=== PATIENT | female | born 1990 | race Caucasian/White ===

== ENCOUNTER 2017-02-23 21:02 | Emergency (ER) | payer OTHER ==
[2017-02-23] MEDS ORDERED: ALBUTEROL NEB 2.5 MG/3 ML VIAL.NEB NEB ONE (22:55)
[2017-02-23] MEDS ORDERED: ALBUTEROL/IPRATROPIUM 2.5/0.5 MG 3 ML/EACH DOSE ONE (22:55)
[2017-02-23] MEDS ORDERED: PREDNISONE 20 MG TABLET ONE (22:55)
[2017-02-23] MEDS ORDERED: IBUPROFEN 600 MG TABLET ONE (23:14)
--- NOTE | 2017-02-24 07:41 | RAD ---
CHEST - 2 VIEWS COMPARISON: Portable chest x-ray, 09/25/2013 HISTORY: Cough and fever. FINDINGS: Views: Frontal and lateral chest Lungs: Normal Heart and vessels: Normal Trachea and bronchi: Normal Mediastinum and shawna: Normal Costophrenic sulci: Normal Chest wall and bones: Normal. Upper abdomen: Normal. IMPRESSION: Negative 2 view chest.
== END 2017-02-24 00:38 | disposition home or self-care (01) ==
LOC: ED 21:02
DX: J45.901 Unspecified asthma with (acute) exacerbation (principal); J06.9 Acute upper respiratory infection, unspecified
CPT/HCPCS: 71020; 99283 ×2; A9270; J7512